=== PATIENT | female | born 1940 | race Caucasian/White ===

== ENCOUNTER → 2016-09-17 | Outpatient (CLI) | payer OTHER ==
[~2016-09-17] MED LIST: CIPR-255 PO; DICL50TA3 PO
[2016-09-17 13:01] LABS: ESTIMATED AVERAGE GLUCOSE 117 mg/dl; HA1C FLAG Normal (Normal)
[2016-09-17 13:04] LABS: CHOLESTEROL 216 mg/dl (0-200); CHOLESTEROL/HDL RATIO 2.4; HDL CHOLESTEROL 90 mg/dl; TRIGLYCERIDES 86 mg/dl (0-150); VERY LOW DENSITY LIPOPROT CALC 17 mg/dl
== END | disposition home or self-care (01) ==
LOC: C.LABSPEC 12:22
PROVIDERS: ATTEND Internal Medicine
DX: Z00.00 Encounter for general adult medical examination without abnormal findings (principal); R73.9 Hyperglycemia, unspecified

== ENCOUNTER → 2017-02-09 | Outpatient (CLI) | payer OTHER ==
--- NOTE | 2017-02-09 15:43 | MAMMOGRAPHY REPORT ---
BILATERAL DIGITAL SCREENING MAMMOGRAM WITH CAD: 02/09/2017 CLINICAL HISTORY: Routine screening. Patient has no complaints. TECHNIQUE: Bilateral CC and MLO views were obtained. Current study was also evaluated with a Compute r Aided Detection (CAD) system. COMPARISON: Comparison is made to exams dated: 02/09/2016 mammogram, 02/04/2015 mammogram, 02/01/2014 m ammogram, 01/30/2013 mammogram, 01/21/2012 mammogram, and 07/08/2011 mammogram - [facility] enter. BREAST COMPOSITION: There are scattered areas of fibroglandular density in both breasts. FINDINGS: There is stable focal asymmetry in the subareolar left breast. A small grouping of microca lcifications in the 12:00 middle one third of the right breast appears similar on all available prior mammograms dating back to at least 07/08/2011, therefore likely benign. No new suspicious mass, arc hitectural distortion or cluster of microcalcifications is seen. IMPRESSION: ACR BI-RADS CATEGORY 1: NEGATIVE There is no mammographic evidence of malignancy. A 1 year screening mammogram is recommended. The pa tient will receive written notification of the results. Approximately 10% of breast cancers are not detected with mammography. A negative mammographic report should not delay biopsy if a clinically suggestive mass is present. Sonali Knox M.D. ay/:02/09/2017 14:12:56 Maintenance Data Analyst: Vicki LUZ)(Bhumika), [facility] letter sent: Normal 1/2 BI-RADS Code: ACR BI-RADS Category 1: Negative
== END | disposition home or self-care (01) ==
LOC: C.MAMM 09:53
PROVIDERS: ATTEND Internal Medicine
DX: Z12.31 Encounter for screening mammogram for malignant neoplasm of breast (principal)

== ENCOUNTER → 2017-03-25 | Outpatient (CLI) | payer OTHER ==
[2017-03-25 17:54] LABS: BLOOD UREA NITROGEN 19 mg/dl (7-18); BUN/CREATININE RATIO 18.7 (10-20); CARBON DIOXIDE 29 mmol/L (21-32); CHLORIDE 105 mmol/L (98-107); GLUCOSE 116 mg/dl (70-99); POTASSIUM 4.7 mmol/L (3.5-5.1); SODIUM 139 mmol/L (136-145)
--- NOTE | 2017-03-30 20:48 | CODING QUERY NO DIAGNOSIS ---
TREATMENT RENDERED WITHOUT A DIAGNOSIS 39 To promote full compliance with coding requirements relating to patient care, physician participation is requested in all cases of reel cart operator uncertainty. Please assist us with providing a diagnosis/symptom for the test(s) below: A diagnosis/symptom was not documented on your Order. A valid diagnosis/symptom is required to bill all insurances. Please remember that we are unable to code a diagnosis of rule out, probable, possible, questionable, or suspected. DOS 03/25/17 Tests that require a diagnosis: * PARTIAL RENAL PROFILE DIAGNOSIS: Provider Signature: Date: Thank you Betzaida Amaya [employer] Once completed, please kindly fax back to [phone] For questions please call [phone]
== END | disposition home or self-care (01) ==
LOC: C.LABSPEC 17:29
PROVIDERS: ATTEND Internal Medicine
DX: Z01.812 Encounter for preprocedural laboratory examination (principal)

== ENCOUNTER → 2017-04-04 | Outpatient (CLI) | payer OTHER ==
[~2017-04-04] MED LIST changes: +GADAVIST IV PRN
--- NOTE | 2017-04-04 11:23 | DIAGNOSTIC IMAGING REPORT ---
MRI OF THE BRAIN WITHOUT AND WITH IV CONTRAST CLINICAL HISTORY: DISEQUILIBRIUM, DIZZINESS VERTIGO COMPARISON STUDY: No previous studies for comparison. TECHNIQUE: MRI of the brain was performed from the vertex to the skull base utilizing various T1 and T2 weighted sequences. Following the IV administration of 9 mL of Gadavist contrast, additional enhanced images were obtained. FINDINGS: Sagittal T1, axial diffusion, proton density and T2 weighted axial, coronal FLAIR, and pre and post axial T1-weighted images were acquired. These were supplemented with post gadolinium coronal T1 weighted images. No intra or extra-axial mass lesions are visualized. Axial diffusion-weighted images reveal no evidence of acute or subacute infarction. There is no evidence of ventricular dilatation. Proton density T2-weighted and FLAIR images reveal minor foci of increased T2 signal within the white matter, likely on a small vessel basis. There are no abnormal flow voids. There is no evidence of pathologic enhancement. There are minimal foci of increased T2 signal within the right mastoid likely inflammatory IMPRESSION: 1. No evidence of intracranial mass 2. No evidence of acute or subacute infarction 3. Minimal foci of increased T2 signal within the right mastoid likely inflammatory/postinflammatory Electronically signed by: Avery Cummings M.D. 04/04/2017 11:21 AM Dictated Date/Time: 04/04/2017 11:17 AM
== END | disposition home or self-care (01) ==
LOC: C.MRI 09:34
PROVIDERS: ATTEND Internal Medicine
DX: R42 Dizziness and giddiness (principal)

== ENCOUNTER → 2017-09-15 | Outpatient (CLI) | payer OTHER ==
[~2017-09-15] MED LIST changes: -GADAVIST IV PRN
[2017-09-15 14:28] LABS: BLOOD UREA NITROGEN 21 mg/dl (7-18); CALCIUM 8.8 mg/dl (8.5-10.1); CARBON DIOXIDE 24 mmol/L (21-32); CHOLESTEROL 181 mg/dl (0-200); GLUCOSE 103 mg/dl (70-99); POTASSIUM 4.3 mmol/L (3.5-5.1); SODIUM 137 mmol/L (136-145)
[2017-09-15 14:34] LABS: LDL CHOLESTEROL (DIRECT) 88 mg/dl
== END | disposition home or self-care (01) ==
LOC: C.LABSPEC 12:40
PROVIDERS: ATTEND Internal Medicine
DX: Z00.00 Encounter for general adult medical examination without abnormal findings (principal); R73.9 Hyperglycemia, unspecified

== ENCOUNTER → 2017-12-05 | Outpatient (CLI) | payer OTHER ==
--- NOTE | 2017-12-05 13:22 | DIAGNOSTIC IMAGING REPORT ---
L-SPINE MIN 4 VIEWS ROUTINE HISTORY: 77 years-old Female LUMBAR REDICULOPATHY chronic lumbar spine pain COMPARISON: CT abdomen and pelvis 07/20/2015 TECHNIQUE: 5 views of the lumbar spine FINDINGS: There are 5 nonrib-bearing lumbar type vertebral segments present. No acute fracture or subluxation. Mild levoscoliosis of the lumbar spine. Severe intervertebral disc space narrowing at a L1-L2, L2-L3 and L5-S1. 7 mm anterolisthesis L4 on L5 has progressed from comparison study, likely secondary to long-standing facet arthrosis. There is severe multilevel facet arthropathy. Moderate degeneration with suggested erosive changes of the bilateral SI joints redemonstrated, left greater than right. 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 Cholecystectomy clips are seen. IMPRESSION: 1. No acute fracture or subluxation identified. 2. Degenerative changes as above. 3. Prior cholecystectomy. The above report was generated using voice recognition software. It may contain grammatical, syntax or spelling errors. Electronically signed by: Harpal Bedolla M.D. 12/05/2017 1:21 PM Dictated Date/Time: 12/05/2017 1:17 PM
== END | disposition home or self-care (01) ==
LOC: C.RAD 12:52
PROVIDERS: ATTEND Internal Medicine
DX: M47.9 Spondylosis, unspecified (principal)

== ENCOUNTER → 2017-12-12 | Outpatient (CLI) | payer OTHER ==
--- NOTE | 2017-12-12 11:53 | DIAGNOSTIC IMAGING REPORT ---
LUMBAR SPINE MRI HISTORY: Low back pain. TECHNIQUE: Multiplanar multisequence MRI of the lumbar spine was performed without the use of contrast. COMPARISON: Lumbar spine 12/05/2017. FINDINGS: For the purpose of the report the L5-S1 disc space will be located on axial image 23 of 25. No change in the 4 mm of anterolisthesis of L4 and L5. Severe disc space narrowing at L1-L2, L2-L3, and L5-S1. Mild disc space narrowing at L4-L5. Advanced facet degenerative changes within the lower lumbar spine most pronounced at the L4-L5 level. Visualized retroperitoneal soft tissues are unremarkable. The conus terminates at the L1 level. Small broad-based posterior disc bulges at 11-12 and T12-L1 without significant central canal narrowing. L1-L2: Small broad-based posterior disc osteophyte complex resulting in mild central canal and mild bilateral neural foraminal narrowing. L2-L3: Small broad-based posterior disc bulge without significant central canal narrowing. There is mild right neural foraminal narrowing. L3-L4: Small broad-based posterior disc bulge without significant central canal or neural foraminal narrowing. L4-L5: Severe ligamentum and facet hypertrophy in conjunction with the spondylolisthesis results in moderate to severe central canal narrowing. No significant neural foraminal narrowing. L5-S1: Small broad-based posterior disc bulge without significant central canal narrowing. There is moderate right and mild left neural foraminal narrowing. IMPRESSION: 1. Multilevel lumbar spondylosis as described above. There is moderate to severe central canal narrowing at L4-L5 primarily due to the spondylolisthesis and ligamentum and facet hypertrophy. 2. No fractures within the lumbar spine. Electronically signed by: Mk Cardenas M.D. 12/12/2017 11:52 AM Dictated Date/Time: 12/12/2017 11:34 AM
== END | disposition home or self-care (01) ==
LOC: C.MRI 10:50
PROVIDERS: ATTEND Internal Medicine
DX: M43.16 Spondylolisthesis, lumbar region (principal); M48.061 Spinal stenosis, lumbar region without neurogenic claudication

== ENCOUNTER → 2018-02-14 | Outpatient (CLI) | payer OTHER ==
--- NOTE | 2018-02-14 16:19 | MAMMOGRAPHY REPORT ---
BILATERAL DIGITAL SCREENING MAMMOGRAM TOMOSYNTHESIS WITH CAD: 02/14/2018 CLINICAL HISTORY: Routine screening. Patient has no complaints. TECHNIQUE: The study was acquired using full field digital technology and interpreted from soft copy. Breast tomosynthesis in addition to standard 2D mammography was performed. Current study was also ev aluated with a Computer Aided Detection (CAD) system. COMPARISON: Comparison is made to exams dated: 02/09/2017 mammogram, 02/09/2016 mammogram, 07/30/2015 ma mmogram, 02/04/2015 mammogram, 02/01/2014 mammogram, and 01/30/2013 mammogram - [facility] ter. BREAST COMPOSITION: There are scattered areas of fibroglandular density in both breasts. FINDINGS: There are stable nodular asymmetries in the superior left breast, and stable scattered and grouped calcifications bilaterally. No suspicious mass, architectural distortion or cluster of microc alcifications is seen. IMPRESSION: ACR BI-RADS CATEGORY 1: NEGATIVE There is no mammographic evidence of malignancy. A 1 year screening mammogram is recommended.( 019) The patient will receive written notification of the results. Some breast cancers are not detected with mammography. A negative mammographic report should not rudy y biopsy if a clinically suggestive mass is present. Sonali Knox M.D. ay/:02/14/2018 15:28:08 Master Control Supervisor: RT Mazin(R)(M), [facility] letter sent: Normal 1/2 BI-RADS Code: ACR BI-RADS Category 1: Negative
== END | disposition home or self-care (01) ==
LOC: C.MAMM 09:35
PROVIDERS: ATTEND Internal Medicine
DX: Z12.31 Encounter for screening mammogram for malignant neoplasm of breast (principal)

== ENCOUNTER 2024-11-16 16:51 | Inpatient (IN) ==
[2024-11-16 17:41] LABS: Hematocrit (blood only) 41.7 % (37.0-47.0); Hemoglobin 13.4 g/dl (12.0-16.0); Mean Corpuscular Hgb Conc 32.1 g/dL (32.0-36.0); Mean Corpuscular Volume 90.3 fL (80.0-100.0); Mean Platelet Volume 8.3 fL (9.4-12.4); Platelet Count 428 K/uL (130-400); RDW Coefficient of Variation 13.2 % (11.5-14.5); RDW Standard Deviation 43.7 fL (36.4-46.3); Red Blood Count 4.62 M/uL (4.20-5.40)
--- NOTE | 2024-11-16 17:44 | Emergency Department Note ---
Impression & Plan Diverticulitis of large intestine with complication, Abdominal pain, acute, left lower quadrant, Perforation of sigmoid colon due to diverticulitis, Intra- abdominal abscess, Fistula ED Provider Note NAME: FERNANDEZ MEDRANO AGE: 84 SEX: F : 1940 ARRIVES VIA: Walk-In INFORMANT: Patient, ED PROVIDER(S): Damon Schmitz MD CHIEF COMPLAINT: Outpatient referral, abnormal CAT scan MEDICAL DECISION MAKING: Patient presents with the above after further questioning does endorse that she has had some urinary symptoms which prompted the ciprofloxacin use and does have pain to palpation on exam. Reviewed the patient's CT did show concern for diverticulitis with contained perforation several small abscesses as well as a colovesicular fistula. IV was established and blood work was obtained along with blood cultures lactate procalcitonin. Patient declining pain medication at this time. Patient was ordered 1 L of IV fluids as well as IV Zosyn. I did speak with the on-call general surgery service Dr. Jean Baptiste who agreed with medical admission n.p.o. at midnight. He did state that the PA honey Sandhu would likely see the patient this evening. Patient's blood work shows a white count of 27 with a normal H&H. Thrombocytosis of 428. Patient's kidney function is unremarkable as of broken with creatinine 1.5. Pro-Rashi is not elevated. 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 I did speak the on-call hospital service to here at [facility] and the patient was admitted by Dr. Barnett. Discussion w/ other healthcare providers: [facility] Barnett [facility] medicine service Prior /Outside records reviewed: None Differential diagnosis: Appendicitis, ovarian cyst, ovarian torsion, ectopic , TOA, PID, diverticulitis, UTI, obstruction, inflammatory bowel disease, renal colic, PUD, pancreatitis, biliary pathology, hernia, volvulus, constipation, as well as other pathologies were considered. Diagnostics, as interpreted by me: ECG: None Cardiac monitoring: An order was placed for continuous cardiac monitoring. The monitor shows a rate of 102 with sinus tachycardia rhythm. Patient was placed on pulse oximetry Medical decision rules: None Imaging studies: CT abdomen pelvis report reviewed prior to admission which showed the diverticulitis and contained perforation with abscesses and possible colovesicular fistula. HPI: Patient presents due to concern for abnormal CAT scan. The patient reportedly had an abnormal CT scan and was told that there was air in the bladder as well as diverticulitis. The patient states that she does have a prior history of diverticulitis but states that she does not know when she has it if she lacks symptoms. The patient reports that she was recent seen by Dr. Knox and was diagnosed with some Hunner's ulcers did not have any urinary symptoms at that time but developed them about 3 days ago at which point the patient started taking ciprofloxacin. The patient did have a CAT scan that was ordered for follow-up purposes which noted the abnormal findings today and was referred here for further evaluation treatment. Patient denies any fevers or chills no nausea vomiting or diarrhea she denies any blood in urine or stool. PAST MEDICAL HISTORY: See Below PAST SURGICAL HISTORY: See Below SOCIAL HISTORY: See Below HOME MEDICATIONS: See Below ALLERGIES: See Below VITALS: See Below PHYSICAL EXAMINATION: GENERAL: NAD, non-toxic. EYE EXAM: Normal conjunctiva. PERRL, no anisocoria and EOM's grossly intact w/o pain. OROPHARYNX: Moist mucus membranes, grossly normal dentition. NECK: Trachea midline, no stridor. LUNGS: Clear to auscultation. Normal chest wall mechanics. HEART: Tachycardic and regular, no MRG. ABDOMEN: Abdomen soft, lower abdominal pain most prominent in the left lower quadrant, no masses, no rebound or guarding. BACK: No CVA TTP. SKIN: No rashes and no bruising. UPPER EXTREMITIES: Upper extremities are grossly normal. LOWER EXTREMITIES: Grossly normal, no edema. NEURO EXAM: A&O x3, cranial nerves II-XII grossly intact, normal speech, moves all 4 extremities. Past Med/Surg History Problem List (Updated 11/16/24 @ 20:02 by Damon Schmitz MD) Fistula (Acute) Intra-abdominal abscess (Acute) Perforation of sigmoid colon due to diverticulitis (Acute) Abdominal pain, acute, left lower quadrant (Acute) Diverticulitis of large intestine with complication (Acute) Left facial pressure and pain Sinusitis Hunner's ulcer Nocturia Osteoporosis History of uterine cancer s/p hysterectomy and bilateral oophorectomy Rosacea Leg swelling Constipation (Chronic) Impaired fasting glucose Lumbar post-laminectomy syndrome (Chronic) Lumbar facet joint syndrome (Chronic) Chronic low back pain (Chronic) Arthritis (Chronic) Medical History COVID-19 Spinal stenosis Acute diverticulitis Surgical History History of oral surgery Tooth extraction History of esophageal dilatation History of D&C History of spinal fusion L4-5 Family History Father Diabetes Myocardial infarction Heart problem Mother COPD (chronic obstructive pulmonary disease) Denies family history of Ovarian cancer Prostate cancer Breast cancer Colorectal cancer Social History Smoking Status: Never smoker Second Hand Exposure: No; Do You Dip or Chew Tobacco: No; Hx Alcohol Use: Yes (bourban or wine one per day) Alcohol type: wine and hard liquor Alcohol Intake Frequency: 4 or More x per/Week Hx Substance Use: No Preferred Language: Greek Visual Impairment: No Limitations Hearing Ability: Normal marital status: marital status details: with spouse Current Living Situation: Spouse current occupational status: retired 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 Feels Safe at Home: Yes Childhood Exposure to Second-Hand Smoke: No Diet: regular caffeine: Yes Dental Care, Regularly: Yes Physical Activity Frequency: Does not Exercise Seatbelt Use: always Sunscreen Use: Yes (sometimes ) Assistive Devices: Contacts Allergies Allergies Allergy/AdvReac Type Severity Reaction Status Date / Time adhesive Allergy Mild REDNESS, Verified 11/16/24 18:06 SKIN IRRITATION prednisone Allergy Mild rash and PANTOJA Verified 11/16/24 18:06 Sulfa (Sulfonamide AdvReac Intermediate Vomiting Verified 11/16/24 18:06 Antibiotics) alendronate sodium AdvReac Unknown CAN'T Verified 11/16/24 18:06 [From Fosamax] REMEMBER Home Meds Home Medications Medication Instructions Recorded Confirmed ciprofloxacin HCl 250 mg tablet 250 mg PO BID 11/16/24 11/16/24 diclofenac sodium 75 mg 75 mg PO QAM 11/16/24 11/16/24 tablet,delayed release lorazepam 0.5 mg tablet 0.5 mg PO BID PRN Anxiety 11/16/24 11/16/24 mesalamine 1.2 gram tablet,delayed 1.2 g PO BID 11/16/24 11/16/24 release Results & Data (ED) Vital Signs Vital Signs - 24 hr 11/16/24 17:07 11/16/24 17:39 11/16/24 17:43 Temperature 36.6 C Temperature Source Temporal Artery Scan Pulse Rate 109 H 102 H 103 H Pulse Rate from SpO2 Sensor 103 H Respiratory Rate 18 26 H Respiratory Effort / Characteristics Non-Labored Spontaneous Respiratory Depth Normal Respiratory Pattern Regular Blood Pressure 149/13 H 171/96 H Blood Pressure Mean 58 121 Blood Pressure Position Sitting Pulse Oximetry 96 96 Oxygen Delivery Method Room Air Sepsis Recent Fever Within 48 Hours No Sepsis New/Unexplained Change in Mental Status N/A Sepsis Action Taken by Nursing No Action Required 11/16/24 17:48 11/16/24 17:54 11/16/24 19:00 Temperature Temperature Source Pulse Rate 99 H 101 H 97 H Pulse Rate from SpO2 Sensor 99 H 101 H 96 H Respiratory Rate 23 15 22 Respiratory Effort / Characteristics Respiratory Depth Respiratory Pattern Blood Pressure 147/104 H 154/88 H Blood Pressure Mean 118 110 Blood Pressure Position Pulse Oximetry 95 95 95 Oxygen Delivery Method Sepsis Recent Fever Within 48 Hours Sepsis New/Unexplained Change in Mental Status Sepsis Action Taken by Nursing 11/16/24 19:00 Temperature Temperature Source Pulse Rate Pulse Rate from SpO2 Sensor Respiratory Rate Respiratory Effort / Characteristics Respiratory Depth Respiratory Pattern Blood Pressure 154/88 H Blood Pressure Mean 127 Blood Pressure Position Pulse Oximetry Oxygen Delivery Method Sepsis Recent Fever Within 48 Hours Sepsis New/Unexplained Change in Mental Status Sepsis Action Taken by Skilled Nursing Medications Current Medication List: was personally reviewed by me Laboratory Data Attestation: I reviewed the patient's lab results. 11/16/24 17:15 11/16/24 17:15 Lab Results 11/16/24 11/16/24 11/16/24 Range/Units 17:15 18:37 19:14 WBC 27.20 H (4.8-10.8) K/ul RBC 4.62 (4.20-5.40) M/uL Hgb 13.4 (12.0-16.0) g/dl Hct 41.7 (37.0-47.0) % MCV 90.3 (80.0-100.0) fL MCH 29.0 (25.0-34.0) pg MCHC 32.1 (32.0-36.0) g/dL RDW Std Deviation 43.7 (36.4-46.3) fL RDW Coeff of Merari 13.2 (11.5-14.5) % Plt Count 428 H (130-400) K/uL MPV 8.3 L (9.4-12.4) fL Immature Gran % (Auto) 1.3 % Neut % (Auto) 86.4 % Lymph % (Auto) 4.5 % [place] % (Auto) 7.1 % Eos % (Auto) 0.4 % Baso % (Auto) 0.3 % Neut # (Auto) 23.49 H (1.40-6.50) K/uL Lymph # (Auto) 1.23 (1.20-3.40) K/uL [place] # (Auto) 1.94 H (0.11-0.59) K/uL Eos # (Auto) 0.11 (0.00-0.50) K/uL Baso # (Auto) 0.09 (0.00-0.20) K/uL Immature Gran # (Auto) 0.34 H (0.01-0.20) K/uL Sodium 135 L (136-145) mmol/L Potassium 4.7 (3.5-5.1) mmol/L Chloride 100 (98-107) mmol/L Carbon Dioxide 28 (21-32) mmol/L Anion Gap 7 (3-11) BUN 17 (6-23) mg/dl Creatinine 1.51 H (0.6-1.2) mg/dl Est Cr Clr Drug Dosing 23.9 ml/min eGFR 33.67 BUN/Creatinine Ratio 11.3 (10-20) Glucose 141 H (70-99(Fasting)) mg/dl Lactate 1.1 (0.4-2.0) mmol/L Calcium 9.3 (8.6-10.3) mg/dl Total Bilirubin 0.3 (0.2-1.0) mg/dl AST 19 (13-39) U/L ALT 13 (7-52) U/L Alkaline Phosphatase 80 (34-104) U/L Total Protein 7.9 (6.0-8.3) gm/dl Albumin 3.8 (3.4-5.0) gm/dl Globulin 4.1 H (2.5-4.0) gm/dl Albumin/Globulin Ratio 0.9 (0.9-2) Lipase 5 L (11-82) U/L Procalcitonin 0.19 (0-0.5) ng/ml Urine Color Yellow Urine Appearance Turbid A (Clear) Urine pH 5.5 (4.5-7.5) Ur Specific [place] > 1.045 H (1.000-1.030) Urine Protein 2+ H (Negative) Urine Glucose (UA) Negative (Negative) Urine Ketones 1+ H (Negative) Urine Blood 2+ H (Negative) Urine Nitrite Negative (Negative) Urine Bilirubin Negative (Negative) Urine Urobilinogen Negative (Negative) Ur Leukocyte Esterase 3+ H (Negative) Urine WBC (Auto) >50 H (0-5) /hpf Urine RBC (Auto) >20 H (0-2) /hpf U Hyaline Cast (Auto) 0-2 (0-2) /lpf U Epithel Cells (Auto) 6-10 H (0-2) /hpf Urine Bacteria (Auto) 3+ H (None Seen) Administered Medications Discontinued Medications Piperacillin Sod/Tazobactam Sod (Zosyn) 4.5 gm in 100 mls @ 200 mls/hr IV NOW ONE; Protocol Stop: 11/16/24 18:00 Last Admin: 11/16/24 19:03 Dose: 200 mls/hr Documented By: SAMANTHA Discharge Plan Visit Data Chief Complaint: Abdominal Pain Stated Complaint: DIVERTICULITIS, ED Provider: Damon Schmitz Discharge Problem: Diverticulitis of large intestine with complication, Abdominal pain, acute, left lower quadrant, Perforation of sigmoid colon due to diverticulitis, Intra- abdominal abscess, Fistula Forms Stand Alone Forms: [facility] [employer] Prescriptions Prescriptions: No Action ciprofloxacin HCl 250 mg tablet 250 mg PO BID Rx Instructions: STARTED 11/14/24 FOR 2 DAYS lorazepam 0.5 mg tablet 0.5 mg PO BID PRN (Reason: Anxiety) diclofenac sodium 75 mg tablet,delayed release (DR/EC) 75 mg PO QAM mesalamine 1.2 gram tablet,delayed release (DR/EC) 1.2 g PO BID Referrals Referrals: Tonja Cha MD [Primary Care Provider] -
[2024-11-16 18:00] LABS: Basophils # (auto) 0.09 K/uL (0.00-0.20); Basophils % (auto) 0.3 %; Eosinophils # (auto) 0.11 K/uL (0.00-0.50); Eosinophils % (auto) 0.4 %; Immature Granulocytes # (auto) 0.34 K/uL (0.01-0.20); Immature Granulocytes % (auto) 1.3 %; Lymphocytes # (auto) 1.23 K/uL (1.20-3.40); Lymphocytes % (auto) 4.5 %; Monocytes # (auto) 1.94 K/uL (0.11-0.59); Monocytes % (auto) 7.1 %; Neutrophils # (auto) 23.49 K/uL (1.40-6.50); Neutrophils % (auto) 86.4 %
[2024-11-16 18:05] LABS: Albumin Globulin Ratio 0.9 (0.9-2); Albumin Level 3.8 gm/dl (3.4-5.0); BUN Creatinine Ratio 11.3 (10-20); Bilirubin,Total 0.3 mg/dl (0.2-1.0); Calcium 9.3 mg/dl (8.6-10.3); Creatinine Clr Calc Pharmacy 23.9 ml/min; Globulin 4.1 gm/dl (2.5-4.0); Potassium 4.7 mmol/L (3.5-5.1); Total Protein 7.9 gm/dl (6.0-8.3)
--- NOTE | 2024-11-16 18:22 | History & Physical Report ---
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 NKIKI: Likely secondary to acute infection and dehydration Monitor daily CMP, avoid nephrotoxic agents Recurrent UTIs: Follows with urology, recently had a cystoscopy completed outpatient Placed on ciprofloxacin for presumed UTI A total of 60 minutes was spent on chart review/reviewing diagnostic data/discussion with consultants/facilitating plan of care Full code DVT prophylaxis: SCDs, avoid AC with possible surgical intervention History of Present Illness Chief Complaint: Abdominal pain, abnormal outpatient CT Primary Care Provider: Tonja Cha MD The patient is a 84-year-old female with a past medical history of chronic ulcerative rectosigmoiditis, uterine cancer, chronic lower back pain, anxiety who presents to the ED 11/16/24 after she was sent in by urology for an abnormal outpatient CT showing diverticulitis with abscesses. S/p cystoscopy with removal of 2 cyst on 08/08/2024. Patient had a urinalysis completed today and was directed to come to the ER for further imaging. On exam, the patient denies any abdominal pain any fevers any chills any nausea/vomiting/diarrhea. Reports having diverticulitis in the past and was also asymptomatic at that time. On arrival to the ED labs are remarkable for WBC 27, platelets 428, creatinine 1.51, glucose 141 CT A/P showed: 1. No urinary calculi or hydronephrosis. No upper tract urothelial lesions. 2. Findings consistent with acute sigmoid diverticulitis. Several small fluid and gas containing pericolonic collections suggestive of contained perforation with small abscesses. No free air. No drainable fluid collections. 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 Findings will be called/faxed to the ordering provider at time of dictation. 3. Moderate bladder wall thickening with adjacent stranding and debris within the bladder. 4. Mildly enlarged pericolonic lymph nodes. These may be reactive. However, a neoplastic etiology cannot be excluded. These could be assessed with a follow-up abdomen and pelvis CT or colonoscopy once symptoms resolve to exclude an underlying colonic lesion. 5. Large hiatal hernia with intrathoracic stomach. Patient was mildly tachycardic on arrival, 102, procalcitonin within normal l imits, blood pressure elevated in the 170s. Afebrile After discussion with surgery, the patient will be admitted for further IV antibiotics and possible surgical management Allergies Allergy/AdvReac Type Severity Reaction Status Date / Time adhesive Allergy Mild REDNESS, Verified 11/16/24 18:06 SKIN IRRITATION prednisone Allergy Mild rash and PANTOJA Verified 11/16/24 18:06 Sulfa (Sulfonamide AdvReac Intermediate Vomiting Verified 11/16/24 18:06 Antibiotics) alendronate sodium AdvReac Unknown CAN'T Verified 11/16/24 18:06 [From Fosamax] REMEMBER Home Medications Medication Instructions Recorded Confirmed Type ciprofloxacin HCl 250 mg tablet 250 mg PO BID 11/16/24 11/16/24 History diclofenac sodium 75 mg 75 mg PO QAM 11/16/24 11/16/24 History tablet,delayed release lorazepam 0.5 mg tablet 0.5 mg PO BID PRN Anxiety 11/16/24 11/16/24 History mesalamine 1.2 gram tablet,delayed 1.2 g PO BID 11/16/24 11/16/24 History release Past Med/Surg History Problem List (Updated 04/19/24 @ 12:45 by Terrence Kidd MD) Left facial pressure and pain Sinusitis Hunner's ulcer Nocturia Osteoporosis History of uterine cancer s/p hysterectomy and bilateral oophorectomy Rosacea Leg swelling Constipation (Chronic) Impaired fasting glucose Lumbar post-laminectomy syndrome (Chronic) Lumbar facet joint syndrome (Chronic) Chronic low back pain (Chronic) Arthritis (Chronic) Medical History (Updated 04/19/24 @ 12:45 by Terrence Kidd MD) COVID-19 Spinal stenosis Acute diverticulitis Surgical History History of oral surgery Tooth extraction History of esophageal dilatation History of D&C History of spinal fusion L4-5 Family History Father Diabetes Myocardial infarction Heart problem Mother COPD (chronic obstructive pulmonary disease) Denies family history of Ovarian cancer Prostate cancer Breast cancer Colorectal cancer Social History Smoking Status: Never smoker Second Hand Exposure: No; Do You Dip or Chew Tobacco: No; Hx Alcohol Use: Yes (bourban or wine one per day) Alcohol type: wine and hard liquor Alcohol Intake Frequency: 4 or More x per/Week Hx Substance Use: No Preferred Language: Guamanian Visual Impairment: No Limitations Hearing Ability: Normal marital status: marital status details: with spouse Current Living Situation: Spouse current occupational status: retired 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 Feels Safe at Home: Yes Childhood Exposure to Second-Hand Smoke: No Diet: regular caffeine: Yes Dental Care, Regularly: Yes Physical Activity Frequency: Does not Exercise Seatbelt Use: always Sunscreen Use: Yes (sometimes ) Assistive Devices: Contacts Review of Systems Review of Systems: All systems reviewed & are unremarkable except as noted in HPI & below Physical Exam Constitutional: WD/WN, vitals as above Eyes: PERRL, conjunctivae normal, anicteric sclerae ENMT: external ear and nose normal, oropharynx normal Neck: trachea midline, no thyromegaly Respiratory: normal respiratory effort, lungs clear to auscultation Cardiovascular: RRR, no murmur, no edema Gastrointestinal (Abdomen): normal bowel sounds, soft, nontender, no hepatosplenomegaly Musculoskeletal: no cyanosis or clubbing, extremities motor strength 5/5 Skin: no rashes, warm and dry Neurologic: PERRL, EOMI, accommodation nl, no face palsy, no dysarthria Psychiatric: A+Ox3, euthymic affect Lymphatic: no cervical or axillary lymphadenopathy Results & Data Results & Data Vital Signs (Past 12 Hours) Vital Signs Temp Pulse Resp BP Pulse Ox O2 Del Method 11/16/24 17:43 103 H 11/16/24 17:39 102 H 26 H 171/96 H 96 11/16/24 17:07 36.6 C 109 H 18 149/13 H 96 Room Air Diagnostic Findings Laboratory Results WBC 27.20 K/ul (4.8-10.8) H 11/16/24 17:15 RBC 4.62 M/uL (4.20-5.40) 11/16/24 17:15 Hgb 13.4 g/dl (12.0-16.0) 11/16/24 17:15 Hct 41.7 % (37.0-47.0) 11/16/24 17:15 MCV 90.3 fL (80.0-100.0) 11/16/24 17:15 MCH 29.0 pg (25.0-34.0) 11/16/24 17:15 MCHC 32.1 g/dL (32.0-36.0) 11/16/24 17:15 RDW Std Deviation 43.7 fL (36.4-46.3) 11/16/24 17:15 RDW Coeff of Merari 13.2 % (11.5-14.5) 11/16/24 17:15 Plt Count 428 K/uL (130-400) H 11/16/24 17:15 MPV 8.3 fL (9.4-12.4) L 11/16/24 17:15 Immature Gran % (Auto) 1.3 % 11/16/24 17:15 Neut % (Auto) 86.4 % 11/16/24 17:15 Lymph % (Auto) 4.5 % 11/16/24 17:15 King % (Auto) 7.1 % 11/16/24 17:15 Eos % (Auto) 0.4 % 11/16/24 17:15 Baso % (Auto) 0.3 % 11/16/24 17:15 Neut # (Auto) 23.49 K/uL (1.40-6.50) H 11/16/24 17:15 Lymph # (Auto) 1.23 K/uL (1.20-3.40) 11/16/24 17:15 King # (Auto) 1.94 K/uL (0.11-0.59) H 11/16/24 17:15 Eos # (Auto) 0.11 K/uL (0.00-0.50) 11/16/24 17:15 Baso # (Auto) 0.09 K/uL (0.00-0.20) 11/16/24 17:15 Immature Gran # (Auto) 0.34 K/uL (0.01-0.20) H 11/16/24 17:15 Sodium 135 mmol/L (136-145) L 11/16/24 17:15 Potassium 4.7 mmol/L (3.5-5.1) 11/16/24 17:15 Chloride 100 mmol/L (98-107) 11/16/24 17:15 Carbon Dioxide 28 mmol/L (21-32) 11/16/24 17:15 Anion Gap 7 (3-11) 11/16/24 17:15 BUN 17 mg/dl (6-23) 11/16/24 17:15 Creatinine 1.51 mg/dl (0.6-1.2) H 11/16/24 17:15 Est Cr Clr Drug Dosing 23.9 ml/min 11/16/24 17:15 eGFR 33.67 11/16/24 17:15 BUN/Creatinine Ratio 11.3 (10-20) 11/16/24 17:15 Glucose 141 mg/dl (70-99(Fasting)) H 11/16/24 17:15 Calcium 9.3 mg/dl (8.6-10.3) 11/16/24 17:15 Total Bilirubin 0.3 mg/dl (0.2-1.0) 11/16/24 17:15 AST 19 U/L (13-39) 11/16/24 17:15 ALT 13 U/L (7-52) 11/16/24 17:15 Alkaline Phosphatase 80 U/L (34-104) 11/16/24 17:15 Total Protein 7.9 gm/dl (6.0-8.3) 11/16/24 17:15 Albumin 3.8 gm/dl (3.4-5.0) 11/16/24 17:15 Globulin 4.1 gm/dl (2.5-4.0) H 11/16/24 17:15 Albumin/Globulin Ratio 0.9 (0.9-2) 11/16/24 17:15 Lipase 5 U/L (11-82) L 11/16/24 17:15 Procalcitonin 0.19 ng/ml (0-0.5) 11/16/24 17:15 Supervising Physician Co-Signing Physician Notes Attending addendum: The patient was seen and examined in emergency room in presence of the She was having lower abdominal pressure and has had a CAT scan as an outpatient noted to have diverticulitis Denies any significant pain, distention of the abdomen, nausea and/or vomiting and denies any constipation On examination. Lying in bed without any acute distress Remains hemodynamically stable blood pressure on the upper side at 154/88 Chest was clear to auscultation bilaterally Abdomennot distended, tender in the left lower quadrant without guarding and rigidity and bowel sound present HeartS1-S2 regular Extremitiesno edema Her admission labs, imaging studies and medications reviewed CT of the abdomen pelvis showed acute sigmoid diverticulitis with several small fluid and gas containing pericolonic collection suggestive of contained perforation with small abscesses. No fluid near and no drainable fluid collection. In addition gas within the bladder and a probable colovesical fistula Started with intravenous Zosyn and IV fluids Surgery has been consulted for possible intervention Has increased creatinine 1. 5 1 likely secondary to dehydration from an acute kidney. While in the hospital Agree with assessment plan as outlined above by Clarita VILA and take the full responsibility of care in the hospital Total time taken to document all this was [address] Bhumika Barnett
[2024-11-16] MEDS: PIPERACILLIN/TAZOBACTAM 4.5 GM/100 ML BAG IV ONE (19:03)
[2024-11-16 19:36] LABS: Appearance Urine Turbid (Clear); Bacteria Urine Automated 3+ (None Seen); Bilirubin Urine Negative (Negative); Blood Urine 2+ (Negative); Cast Urine Automated 0-2 /lpf (0-2); Color Urine Yellow; Glucose Urine UA Negative (Negative); Ketones Urine 1+ (Negative); Leukocyte Esterase Urine 3+ (Negative); Nitrite Urine Negative (Negative); Protein Urine 2+ (Negative); RBC Urine Automated >20 /hpf (0-2); Specific Gravity Urine > 1.045 (1.000-1.030); Urobilinogen Urine Negative (Negative); WBC Urine Automated >50 /hpf (0-5); pH Urine 5.5 (4.5-7.5)
[2024-11-16] MEDS ORDERED: ACETAMINOPHEN 325 MG TAB PO PRN (20:16)
[2024-11-16] MEDS ORDERED: PIPERACILLIN/TAZOBACTAM 4.5 GM/100 ML BAG IV ONE (20:16)
[2024-11-16] MEDS: LACTATED RINGER'S 1,000 ML IV SCH (20:54)
--- NOTE | 2024-11-16 21:14 | Surgery Consultation ---
Date of Consultation November 16, 2024 Assessment & Plan (1) Perforation of sigmoid colon due to diverticulitis: Patient seen and evaluated this evening at bedside in the emergency department. From a surgical standpoint recommend the following: -Patient with no signs of acute abdomen that would warrant emergent surgical intervention. Will plan to treat conservatively for now. -NPO, IV fluids, and continue broad-spectrum antibiotics. -Will continue to trend WBC and monitor temps -I did discuss with the patient about the possibility that if her clinical symptoms worsen she may require operative intervention and she expresses understanding. -Continue medical management per primary team, surgery will continue to follow closely History of Present Illness Reason for Consultation: Diverticulitis with perforation/abscess History of Present Illness The patient is an 84-year-old female who presented to the emergency department after findings of acute diverticulitis with contained perforation and abscess on outpatient CT imaging. The patient states that she was having some lower abdominal pain earlier this month and had seen her urologist at the time. On 11/07/2024 she was seen in their office and underwent cystoscopy due to Hunner's ulcers. The patient states she continued with lower abdominal pain, which she thought was from urinary issues, and she started taking ciprofloxacin for. Due to ongoing abdominal pain, she did undergo outpatient CT which did show findings of acute diverticulitis with contained perforation and small abscesses along with gas within the urinary bladder concerning for possible colovesicular fistula. The patient was instructed to come to the emergency department for further evaluation. Lab work also revealed an elevated WBC at 27. Due to CT fi ndings, general surgery was consulted for evaluation. The patient was seen and evaluated at bedside this evening. She is resting comfortably in bed, VSS, and is nontoxic appearing. The patient states that she has had recurrent diverticulitis in the past and she recently did undergo a colonoscopy in September which did not reveal any abnormalities. Her pain is mostly located in her lower abdominal/pelvic region and predominately on the left side. She denies any changes or increased pain during bowel movements and states her last BM was today. She also denies any associated nausea, vomiting, or fevers or chills. The patient states she does have a past surgical history of a total hysterectomy due to uterine cancer along with a cholecystectomy. Allergies Allergy/AdvReac Type Severity Reaction Status Date / Time adhesive Allergy Mild REDNESS, Verified 11/16/24 18:06 SKIN IRRITATION prednisone Allergy Mild rash and PANTOJA Verified 11/16/24 18:06 Sulfa (Sulfonamide AdvReac Intermediate Vomiting Verified 11/16/24 18:06 Antibiotics) alendronate sodium AdvReac Unknown CAN'T Verified 11/16/24 18:06 [From Fosamax] REMEMBER Home Medications Medication Instructions Recorded Confirmed Type ciprofloxacin HCl 250 mg tablet 250 mg PO BID 11/16/24 11/16/24 History diclofenac sodium 75 mg 75 mg PO QAM 11/16/24 11/16/24 History tablet,delayed release lorazepam 0.5 mg tablet 0.5 mg PO BID PRN Anxiety 11/16/24 11/16/24 History mesalamine 1.2 gram tablet,delayed 1.2 g PO BID 11/16/24 11/16/24 History release Patient History Medical History COVID-19 Spinal stenosis Acute diverticulitis Surgical History History of oral surgery Tooth extraction History of esophageal dilatation History of D&C History of spinal fusion L4-5 Family History Father Diabetes Myocardial infarction Heart problem Mother COPD (chronic obstructive pulmonary disease) Denies family history of Ovarian cancer Prostate cancer Breast cancer Colorectal cancer Social History Smoking Status: Never smoker Second Hand Exposure: No; Do You Dip or Chew Tobacco: No; Hx Alcohol Use: Yes (bourban or wine one per day) Alcohol type: wine and hard liquor Alcohol Intake Frequency: 4 or More x per/Week Hx Substance Use: No Preferred Language: Ugandan Visual Impairment: No Limitations Hearing Ability: Normal marital status: marital status details: with spouse Current Living Situation: Spouse current occupational status: retired 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 Feels Safe at Home: Yes Childhood Exposure to Second-Hand Smoke: No Diet: regular caffeine: Yes Dental Care, Regularly: Yes Physical Activity Frequency: Does not Exercise Seatbelt Use: always Sunscreen Use: Yes (sometimes ) Assistive Devices: Contacts Review of Systems Constitutional: no fever, no chills and no sweats Respiratory: no cough and no dyspnea Gastrointestinal: + abdominal pain; no nausea, no vomiting and no change in bowel habits Physical Exam Constitutional: WD/WN, vitals as above Respiratory: normal respiratory effort, lungs clear to auscultation Cardiovascular: RRR, no murmur, no edema Gastrointestinal (Abdomen): Abdomen soft, nondistended, +TTP over the LLQ and lower pelvic region without any rebound, guarding or signs of peritonitis. Skin: no rashes, warm and dry Results & Data Vital Signs (Past 12 Hours) Vital Signs Temp Pulse Resp BP Pulse Ox O2 Del Method 11/16/24 20:06 98 H 13 96 11/16/24 19:42 98 H 26 H 154/88 H 93 11/16/24 19:00 154/88 H 11/16/24 19:00 97 H 22 154/88 H 95 11/16/24 17:54 101 H 15 147/104 H 95 11/16/24 17:48 99 H 23 95 11/16/24 17:43 103 H 11/16/24 17:39 102 H 26 H 171/96 H 96 11/16/24 17:07 36.6 C 109 H 18 149/13 H 96 Room Air Diagnostic Findings CT OF THE ABDOMEN AND PELVIS WITH AND WITHOUT CONTRAST HEMATURIA PROTOCOL CLINICAL HISTORY: R31.9 - Hematuria, unspecified. COMPARISON STUDY: CT of the abdomen and pelvis December 06, 2022. TECHNIQUE: Unenhanced and split bolus phase imaging of the abdomen and pelvis was performed. Intravenous injection of 92 cc of Optiray 320 IV was uneventful. Automated exposure control was utilized for the study. A dose lowering technique was utilized adhering to the principles of ALARA. CT DOSE: 2270.78 mGy.cm FINDINGS: A few small right lower lobe pulmonary nodules measuring up to 4 mm are new since CT December 06, 2022. These are likely benign. There is a large hiatal hernia with intrathoracic stomach. A calcification along the right hepatic lobe is unchanged. This is benign. There is no biliary or pancreatic ductal dilatation. Borderline splenomegaly is unchanged. Adrenal glands and pancreas are unremarkable. There are no urinary calculi. There is no hydronephrosis. Moderate bladder wall thickening is noted. There is adjacent stranding. In addition, there is a moderate amount of gas within the bladder lumen. Suspected debris within the bladder is present. No upper tract urothelial lesions are identified. There is extensive colonic diverticulosis with wall thickening of the sigmoid colon with adjacent stranding consistent with acute diverticulitis. There are several small fluid and gas containing pericolonic collections that measure up to 2.1 x 1.3 cm. In addition, fluid and gas containing tubular density extends toward the left dome of the bladder. This is highly suggestive of a colovesicular fistula. There are multiple mildly enlarged pericolonic lymph nodes. Index node on image 218 measures 1.2 x 0.9 cm per there is no evidence for a bowel obstruction. The appendix is normal. IMPRESSION: 1. No urinary calculi or hydronephrosis. No upper tract urothelial lesions. 2. Findings consistent with acute sigmoid diverticulitis. Several small fluid and gas containing pericolonic collections suggestive of contained perforation with small abscesses. No free air. No drainable fluid collections. 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 Findings will be called/faxed to the ordering provider at time of dictation. 3. Moderate bladder wall thickening with adjacent stranding and debris within the bladder. 4. Mildly enlarged pericolonic lymph nodes. These may be reactive. However, a neoplastic etiology cannot be excluded. These could be assessed with a follow-up abdomen and pelvis CT or colonoscopy once symptoms resolve to exclude an underlying colonic lesion. 5. Large hiatal hernia with intrathoracic stomach. PG Care Time/CCT Total # of Minutes Spent Total Time Spent with Patient: Total time spent is greater than 50% in coordination of care (as documented) at patient's floor/unit and/or counseling patient: [place] [address] INT INP/OBS CARE 1/40MIN Patient Type New History Problem Focused Exam Problem Focused Medical Decision Making Straight Forward Diagnoses Perforation of sigmoid colon due to diverticulitis K57.20
[2024-11-17] MEDS: PIPERACILLIN/TAZOBACTAM 4.5 GM/100 ML BAG IV SCH (00:01)
--- NOTE | 2024-11-17 09:07 | Hospitalist Progress Note ---
Date of Service November 17, 2024 Assessment & Plan (1) Acute diverticulitis: (2) History of uterine cancer: (3) Chronic low back pain: (4) Arthritis: Plan The patient is an 84-year-old female who presented to the ED on 11/16/24 after outpatient imaging showed diverticulitis with abscess Sigmoid diverticulitis with abscesses: Hx recurrent diverticulitis A/P CT showed acute diverticulitis with several small fluid/gas containing pericolonic collectionscontained perforation with small abscesses Gas within the bladder and probable colovesicular fistula related to diverticulitispatient on Mesalamine at home, hold for now Continue bowel rest, IV antibiotics, IV fluids. Surgery on board; diet advanced to clear liquid diet. Plan to advance as tolerated and possibly discharge on oral antibiotics in next few days along with follow-up with co lorectal surgery for further evaluation. NIKKI:Creatinine of 1.51 on admission; baseline around 1.1-1.2; improved with IV hydration. Recurrent UTIs: Acute UTI Urinalysis suggestive of UTI Urine culture with pinpoint growth; final culture pending Full code DVT heparin Please note the above document was generated using voice recognition software. It may contain grammatical, syntax or spelling errors. Any formal questions or concerns about the content, text or information contained within the body of this dictation should be directly addressed to the provider for clarification Admission and Anticipated Discharge Date Admission Date: November 16, 2024 Subjective Patient seen and examined at bedside. She reports that she is feeling hungry; has improved appetite. No fever or chills overnight. Denies any increasing abdominal pain or discomfort. Review of Systems Review of Systems: All systems reviewed & are unremarkable except as noted in Subjective Physical Exam Physical Exam: Constitutional: WD/WN, vitals as above, NAD, sitting up in bed, pleasant, conversing easily Respiratory: normal respiratory effort, lungs clear to auscultation, no wheeze, rales, rhonchi. Normal insp/exp effort, no accessory muscle use Cardiovascular: RRR, no murmur, no edema Vessels: no JVD or carotid bruit Chest: normal inspection of chest Abdomen: soft, non-tender Musculoskeletal: no cyanosis or clubbing, extremities motor strength 5/5 Skin: no rashes, warm and dry normal turgor Neurologic: PERRL, EOMI, accommodation nl, no face palsy, no dysarthria CN's II- XI intact bilaterally and moves all extremities Psychiatric: A+Ox3, euthymic affect Results & Data Results & Data Vital Signs (Past 12 Hours) Vital Signs Temp Pulse Pulse Resp BP Pulse Ox O2 Del Method 11/17/24 07:40 36.4 C L 84 18 148/84 H 95 Room Air 11/17/24 03:12 36.6 C 80 16 150/81 H 97 Room Air 11/16/24 21:56 89 11/16/24 21:10 36.8 C 99 H 18 136/82 95 Room Air
[2024-11-17 09:43] LABS: BUN Creatinine Ratio 11.2 (10-20); Calcium 8.4 mg/dl (8.6-10.3); Creatinine Clr Calc Pharmacy 28.9 ml/min; Potassium 4.1 mmol/L (3.5-5.1)
[2024-11-17 10:19] LABS: Basophils # (auto) 0.05 K/uL (0.00-0.20); Basophils % (auto) 0.5 %; Eosinophils # (auto) 0.22 K/uL (0.00-0.50); Eosinophils % (auto) 2.3 %; Hematocrit (blood only) 36.4 % (37.0-47.0); Hemoglobin 11.5 g/dl (12.0-16.0); Immature Granulocytes # (auto) 0.18 K/uL (0.01-0.20); Immature Granulocytes % (auto) 1.8 %; Lymphocytes # (auto) 1.17 K/uL (1.20-3.40); Mean Corpuscular Hemoglobin 28.7 pg (25.0-34.0); Mean Corpuscular Hgb Conc 31.6 g/dL (32.0-36.0); Mean Corpuscular Volume 90.8 fL (80.0-100.0); Mean Platelet Volume 8.6 fL (9.4-12.4); Monocytes # (auto) 1.02 K/uL (0.11-0.59); Monocytes % (auto) 10.5 %; Neutrophils # (auto) 7.12 K/uL (1.40-6.50); Neutrophils % (auto) 72.9 %; Platelet Count 350 K/uL (130-400); RDW Coefficient of Variation 13.3 % (11.5-14.5); RDW Standard Deviation 44.5 fL (36.4-46.3); Red Blood Count 4.01 M/uL (4.20-5.40); White Blood Count 9.76 K/ul (4.8-10.8)
--- NOTE | 2024-11-17 11:29 | Surgery Progress Note ---
Date of Service November 17, 2024 Assessment & Plan (1) Diverticulitis of large intestine with complication: Plan: Her CT images and results were personally viewed and interpreted by myself She does have some flecks of pneumoperitoneum around her sigmoid colon without any fluid or abscess appreciable Her white count is much improved today Will start her on clear liquids and continue another 24 hours of IV antibiotics If she continues to do well, can advance to a low fiber diet tomorrow and discharge her Did discuss she should follow-up with colorectal surgery as an outpatient to have a discussion about further treatment of her diverticulitis Will follow Admission and Anticipated Discharge Date Admission Date: November 16, 2024 Subjective Patient seen and examined. Denies abdominal pain. Denies any fevers or chills. She denies any nausea or vomiting. Review of Systems Constitutional: no fever and no chills Eyes: no blind spots and no dry eyes Ear, Nose, Mouth, Throat: no ear pain and no dizziness Respiratory: no cough and no dyspnea Cardiovascular: no chest pain and no dyspnea on exertion Gastrointestinal: no abdominal pain, no nausea and no vomiting Genitourinary: no dysuria and no urinary urgency Integumentary: no acne and no lesions Psychiatric: no behavioral changes and no depression Physical Exam Constitutional: WD/WN, vitals as above Respiratory: normal respiratory effort, lungs clear to auscultation Cardiovascular: RRR, no murmur, no edema Gastrointestinal (Abdomen): Inspection/Auscultation: abdomen normal to inspection; abdomen not distended Percussion/Palpation: + abdomen tender (Deep palpation left lower quadrant) and abdomen soft; no guarding and no hernia Musculoskeletal: no cyanosis or clubbing, extremities motor strength 5/5 Skin: no rashes, warm and dry Psychiatric: A+Ox3, euthymic affect Results & Data Vital Signs (Past 12 Hours) Vital Signs Temp Pulse Resp BP Pulse Ox O2 Del Method 11/17/24 07:40 36.4 C L 84 18 148/84 H 95 Room Air 11/17/24 03:12 36.6 C 80 16 150/81 H 97 Room Air PG Care Time/CCT Total # of Minutes Spent Total Time Spent with Patient: Total time spent is greater than 50% in coordination of care (as documented) at patient's floor/unit and/or counseling patient: Coding Level of Care Code 40946 SUB INP/OBS CARE 08/18MIN Diagnoses Diverticulitis of large intestine with complication K57.32
[2024-11-17 20:42] VITALS: PULSE 79; RESP 16
[2024-11-17] MEDS: LORazepam 0.5 MG TAB PO PRN (21:36)
[2024-11-18] MEDS: HEPARIN SOD 5,000 UNIT/0.5 ML VIAL SQ SCH (05:55)
[2024-11-18 07:18] VITALS: BP 147/78; TEMP 98.2; O2SAT 96
[2024-11-18] MEDS ORDERED: HEPARIN SOD 5,000 UNIT/0.5 ML VIAL SQ SCH (09:00)
--- NOTE | 2024-11-18 10:42 | Surgery Progress Note ---
Date of Service November 18, 2024 Assessment & Plan (1) Diverticulitis of large intestine with complication: Plan: She is doing well without any abdominal pain and her leukocytosis resolved She is tolerating a low fiber diet She can be discharged from a surgical standpoint with 2 weeks of p.o. 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 Denies abdominal pain. Afebrile. Tolerating low fiber diet. Review of Systems Constitutional: no fever and no chills Eyes: no blind spots and no dry eyes Ear, Nose, Mouth, Throat: no ear pain and no dizziness Respiratory: no cough and no dyspnea Cardiovascular: no chest pain and no dyspnea on exertion Gastrointestinal: no abdominal pain, no nausea and no vomiting Genitourinary: no dysuria and no urinary urgency Integumentary: no acne and no lesions Psychiatric: no behavioral changes and no depression Physical Exam Constitutional: WD/WN, vitals as above Respiratory: normal respiratory effort, lungs clear to auscultation Cardiovascular: RRR, no murmur, no edema Gastrointestinal (Abdomen): Inspection/Auscultation: abdomen normal to inspection; abdomen not distended Percussion/Palpation: abdomen soft; abdomen nontender, no guarding and no hernia Musculoskeletal: no cyanosis or clubbing, extremities motor strength 5/5 Skin: no rashes, warm and dry Psychiatric: A+Ox3, euthymic affect Results & Data Vital Signs (Past 12 Hours) Vital Signs Temp Pulse Resp BP Pulse Ox O2 Del Method 11/18/24 07:17 36.8 C 79 16 147/78 H 96 Room Air PG Care Time/CCT Total # of Minutes Spent Total Time Spent with Patient: Total time spent is greater than 50% in coordination of care (as documented) at patient's floor/unit and/or counseling patient: Coding Level of Care Code 41178 SUB INP/OBS CARE 08/18MIN Diagnoses Diverticulitis of large intestine with complication K57.32
--- NOTE | 2024-11-18 11:56 | Hospitalist Progress Note ---
Date of Service November 18, 2024 Assessment & Plan (1) Acute diverticulitis: (2) History of uterine cancer: (3) Chronic low back pain: (4) Arthritis: Plan The patient is an 84-year-old female who presented to the ED on 11/16/24 after outpatient imaging showed diverticulitis with abscess Sigmoid diverticulitis with abscesses: Hx recurrent diverticulitis A/P CT showed acute diverticulitis with several small fluid/gas containing pericolonic collectionscontained perforation with small abscesses Gas within the bladder and probable colovesicular fistula related to diverticulitispatient on Mesalamine at home, hold for now Continue bowel rest, IV antibiotics, IV fluids. Surgery on board; diet advanced to clear liquid diet. Plan to advance as tolerated and possibly discharge on oral antibiotics in next few days along with follow-up with co lorectal surgery for further evaluation. Her condition improved a lot and she does not have any more abdominal pain, distention or any other symptoms She has been tolerating low fiber diet and remains afebrile with normal white cell count She will be given oral Augmentin to finish a total of 14 days course of antibiotic and will be discharged home this afternoon NIKKI:Creatinine of 1.51 on admission; baseline around 1.1-1.2; improved with IV hydration. Likely secondary to dehydration and the creatinine improved to 1.25 from 1.5 on on admission Was advised to drink more fluid as an outpatient Recurrent UTIs: Acute UTI Urine culture was negative for any infection Urinalysis suggestive of UTI Urine culture with pinpoint growth; final culture pending Urine culture grew more than 3 types of organisms Full code DVT heparin Admission and Anticipated Discharge Date Admission Date: November 16, 2024 Subjective 11/18/2024 The patient was seen and examined in medical floor in presence of the She has been feeling much better and denies any abdominal discomfort, pain, distention, nausea and/or vomiting She has been tolerating low fiber diet and moving her bowels regularly She be discharged home this afternoon Review of Systems Review of Systems: All systems reviewed and are unremarkable except as noted below Physical Exam Physical Exam: Lying in bed without any acute distress Constitutional: well developed, well nourished and + obese; not ill appearing Eyes: PERRL, conjunctivae normal, anicteric sclerae ENMT: external ear and nose normal, oropharynx normal Neck: trachea midline, no thyromegaly Respiratory: no respiratory distress Auscultation: lungs clear to auscultation bilaterally Cardiovascular: Rate/Rhythm: regular rate and regular rhythm; not tachycardic Heart Sounds: normal S1 and normal S2; no murmur Extremities: no edema Gastrointestinal (Abdomen): Inspection/Auscultation: normal bowel sounds; abdomen not distended Percussion/Palpation: abdomen soft; abdomen nontender Musculoskeletal: No acute arthritis involving any of the joint Neurologic: normal touch/pain/proprioception and moves all extremities; no focal motor deficits Psychiatric: A+Ox3, euthymic affect Lymphatic: no cervical or axillary lymphadenopathy Results & Data Results & Data Vital Signs (Past 12 Hours) Vital Signs Temp Pulse Resp BP Pulse Ox O2 Del Method 11/18/24 07:17 36.8 C 79 16 147/78 H 96 Room Air Medications Administered Current Inpatient Medications Acetaminophen (Acetaminophen 325 Mg Tab) 650 mg PO Q4H PRN PRN Reason: Pain or Fever Stop: 12/16/24 20:15 Heparin Sodium (Porcine) (Heparin Sod 5,000 Unit/0.5 Ml Vial) 5,000 units SQ Q8 ARACELI Stop: 12/18/24 05:59 Last Admin: 11/18/24 05:55 Dose: 5,000 units Piperacillin Sod/Tazobactam Sod (Zosyn) 4.5 gm in 100 mls @ 25 mls/hr IV Q8H [facility]; Protocol Stop: 11/27/24 00:00 Last Admin: 11/18/24 08:12 Dose: 25 mls/hr Lorazepam (Lorazepam 0.5 Mg Tab) 0.5 mg PO BID PRN PRN Reason: Anxiety Stop: 12/16/24 20:15 Last Admin: 11/17/24 21:36 Dose: 0.5 mg
--- NOTE | 2024-11-18 12:58 | Electrocardiogram Report ---
Test Reason : Blood Pressure : */* mmHG Vent. Rate : 101 BPM Atrial Rate : 101 BPM P-R Int : 130 ms QRS Dur : 70 ms QT Int : 338 ms P-R-T Axes : 41 -2 30 degrees QTcB Int : 438 ms Sinus tachycardia Low voltage QRS Possible Inferior infarct , age undetermined Cannot rule out Anterior infarct , age undetermined , suspect lead placement Abnormal ECG When compared with ECG of 17-Nov-2021 05:48, Minimal criteria for Anterior infarct are now Present Borderline criteria for Inferior infarct are now Present Confirmed by James Borges ([id number]) on 11/18/2024 12:57:32 PM Referred By: REFERRED SELF Confirmed By: James Borges
--- NOTE | 2024-11-18 13:06 | Electrocardiogram Report ---
Test Reason : Blood Pressure : */* mmHG Vent. Rate : 91 BPM Atrial Rate : 91 BPM P-R Int : 148 ms QRS Dur : 68 ms QT Int : 356 ms P-R-T Axes : 64 31 57 degrees QTcB Int : 437 ms Normal sinus rhythm Possible Left atrial enlargement Septal infarct (cited on or before 16-Nov-2024) Abnormal ECG When compared with ECG of 16-Nov-2024 17:51, (unconfirmed) Borderline criteria for Inferior infarct are no longer Present Questionable change in initial forces of Anteroseptal leads Confirmed by James Borges ([id number]) on 11/18/2024 1:05:57 PM Referred By: REFERRED SELF Confirmed By: James Borges
[2024-11-18] MEDS: AMOXICILLIN/CLAVULANATE 500 MG TAB PO ONE (13:29)
[2024-11-18] MEDS ORDERED: AMOXICILLIN/CLAVULANATE 500 MG TAB PO SCH (17:00)
--- NOTE | 2024-11-19 07:54 | Discharge Summary ---
Date of Service November 19, 2024 Admission HPI Per Admitting Provider The patient is a 84-year-old female with a past medical history of chronic ulcerative rectosigmoiditis, uterine cancer, chronic lower back pain, anxiety who presents to the ED 11/16/24 after she was sent in by urology for an abnormal outpatient CT showing diverticulitis with abscesses. S/p cystoscopy with removal of 2 cyst on 08/08/2024. Patient had a urinalysis completed today and was directed to come to the ER for further imaging. On exam, the patient denies any abdominal pain any fevers any chills any nausea/vomiting/diarrhea. Reports having diverticulitis in the past and was also asymptomatic at that time. On arrival to the ED labs are remarkable for WBC 27, platelets 428, creatinine 1.51, glucose 141 CT A/P showed: 1. No urinary calculi or hydronephrosis. No upper tract urothelial lesions. 2. Findings consistent with acute sigmoid diverticulitis. Several small fluid and gas containing pericolonic collections suggestive of contained perforation with small abscesses. No free air. No drainable fluid collections. 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 Findings will be called/faxed to the ordering provider at time of dictation. 3. Moderate bladder wall thickening with adjacent stranding and debris within the bladder. 4. Mildly enlarged pericolonic lymph nodes. These may be reactive. However, a neoplastic etiology cannot be excluded. These could be assessed with a follow-up abdomen and pelvis CT or colonoscopy once symptoms resolve to exclude an underlying colonic lesion. 5. Large hiatal hernia with intrathoracic stomach. Patient was mildly tachycardic on arrival, 102, procalcitonin within normal limits, blood pressure elevated in the 170s. Afebrile After discussion with surgery, the patient will be admitted for further IV antibiotics and possible surgical management Admission Exam Per Admitting Provider Constitutional: WD/WN, vitals as above Eyes: PERRL, conjunctivae normal, anicteric sclerae ENMT: external ear and nose normal, oropharynx normal Neck: trachea midline, no thyromegaly Respiratory: normal respiratory effort, lungs clear to auscultation Cardiovascular: RRR, no murmur, no edema Gastrointestinal (Abdomen): normal bowel sounds, soft, nontender, no hepatosplenomegaly Musculoskeletal: no cyanosis or clubbing, extremities motor strength 5/5 Skin: no rashes, warm and dry Neurologic: PERRL, EOMI, accommodation nl, no face palsy, no dysarthria Psychiatric: A+Ox3, euthymic affect Lymphatic: no cervical or axillary lymphadenopathy Principal Diagnosis Acute sigmoid diverticulitis with microabscess, recurrent diverticulitis Discharge Exam Lying in bed without any acute distress Constitutional well developed, well nourished and + obese; not ill appearing Eyes PERRL, conjunctivae normal, anicteric sclerae ENMT external ear and nose normal, oropharynx normal Neck trachea midline, no thyromegaly Respiratory no respiratory distress Auscultation: lungs clear to auscultation bilaterally Cardiovascular Rate/Rhythm: regular rate and regular rhythm; not tachycardic Heart Sounds: normal S1 and normal S2; no murmur Extremities: no edema Gastrointestinal (Abdomen) Inspection/Auscultation: normal bowel sounds; abdomen not distended Percussion/Palpation: abdomen soft; abdomen nontender Neurologic normal touch/pain/proprioception and moves all extremities; no focal motor deficits Psychiatric A+Ox3, euthymic affect Lymphatic no cervical or axillary lymphadenopathy Discharge Data Allergies Allergy/AdvReac Type Severity Reaction Status Date / Time adhesive Allergy Mild REDNESS, Verified 11/16/24 18:06 SKIN IRRITATION prednisone Allergy Mild rash and PANTOJA Verified 11/16/24 18:06 Sulfa (Sulfonamide AdvReac Intermediate Vomiting Verified 11/16/24 18:06 Antibiotics) alendronate sodium AdvReac Unknown CAN'T Verified 11/16/24 18:06 [From Fosamax] REMEMBER Consultations 11/16/24 18:00 Consult General Surgery Routine ED Decision to Admit Stat Hospital Course (1) Acute diverticulitis: (2) History of uterine cancer: (3) Chronic low back pain: (4) Arthritis: Plan The patient is an 84-year-old female who presented to the ED on 11/16/24 after outpatient imaging showed diverticulitis with abscess Sigmoid diverticulitis with abscesses: Hx recurrent diverticulitis A/P CT showed acute diverticulitis with several small fluid/gas containing pericolonic collectionscontained perforation with small abscesses Gas within the bladder and probable colovesicular fistula related to diverticulitispatient on Mesalamine at home, hold for now Continue bowel rest, IV antibiotics, IV fluids. Surgery on board; diet advanced to clear liquid diet. Plan to advance as tolerated and possibly discharge on oral antibiotics in next few days along with follow-up with colorectal surgery for further evaluation. Her condition improved a lot and she does not have any more abdominal pain, distention or any other symptoms She has been tolerating low fiber diet and remains afebrile with normal white cell count She will be given oral Augmentin to finish a total of 14 days course of antibiotic and will be discharged home this afternoon NIKKI:Creatinine of 1.51 on admission; baseline around 1.1-1.2; improved with IV hydration. Likely secondary to dehydration and the creatinine improved to 1.25 from 1.5 on on admission Was advised to drink more fluid as an outpatient Recurrent UTIs: Acute UTI Urine culture was negative for any infection Urinalysis suggestive of UTI Urine culture with pinpoint growth; final culture pending Urine culture grew more than 3 types of organisms Full code DVT heparin Total Time Total Time Spent Total Time Spent (In Minutes): 35 minutes Discharge Plan Discharge Items Patient Disposition: Home - Self-Care Reason For Visit: DIVERTICULITIS Discharge Diagnosis: Acute sigmoid diverticulitis with microabscess, recurrent diverticulitis Condition on Discharge: Fair Activity: Resume your previous activity Non-emergency contact: Primary Care Provider Call non-emergency contact if: you have any medication questions and your symptoms worsen Follow-up/Referrals: Tonja Cha MD [Primary Care Provider] - (Your PCPs office will give you a call with an appointment within 7 days) Diet: Low Fiber Addtl Attending Provider Instructions: Please take precaution to avoid falls Finish the course of antibiotic as advised You can take [id number] probiotics Try to drink more fluid and avoid any foods that contain seeds Please keep appointments with your healthcare provider Pending Studies at Discharge: No Stand-Alone Forms: [employer], Smoking Cessation Medications and DC Order Prescriptions: New amoxicillin-pot clavulanate 875-125 mg Tablet 1 tab PO BIDM Qty: 20 0RF Continued lorazepam 0.5 mg tablet 0.5 mg PO BID PRN (Reason: Anxiety) diclofenac sodium 75 mg tablet,delayed release (DR/EC) 75 mg PO QAM mesalamine 1.2 gram tablet,delayed release (DR/EC) 1.2 g PO BID Discontinued ciprofloxacin HCl 250 mg tablet 250 mg PO BID Rx Instructions: STARTED 11/14/24 FOR 2 DAYS Discharge Orders: Discharge Order (Routine); Ordered 11/18/24 Ordered By: Felice Tena/Other Patient Handouts: Low-Fiber Diet Admission Data Admit Date/Time: 11/16/24 18:10 Attending Provider: Felice Barnett Admit Provider: Felice Barnett Primary Care Provider: Tonja Cha Other Providers: Felice Barnett; Alex Jean Baptiste; Ishmael Ryan Other Interventions: Discharge Summary Assessment (RN) Last Done: 11/18/24 08:10
== END 2024-11-18 13:50 | disposition home or self-care (01) | DRG 392 ==
LOC: ED 16:51 → SUATTDRO 18:10 → EDINP 18:10 → 4W 20:16 → 3N 11-17 16:34